=== PATIENT | female | born 1955 | race Caucasian/White ===

== ENCOUNTER 2018-08-28 07:00 | Day surgery (SDC) | payer OTHER ==
[~2018-08-28] VITALS: Ht 167.6 cm; Wt 55.5 kg
[~2018-08-28 07:00] MED LIST: SODIUM CHLORIDE 0.9% 1,000 ML IV ONE
[2018-08-28] MEDS ORDERED: BENZOCAINE 20% 50 MCG/SPRAY 57 GM TP ONE (07:01)
[2018-08-28] MEDS ORDERED: ALBUTEROL SULFATE 2.5 MG/0.5 ML NEB SOLUTION NEB ONE (07:01)
[2018-08-28] MEDS ORDERED: LIDOCAINE 4% 50 ML SOLUTION TP ONE (07:01)
[2018-08-28] MEDS ORDERED: LIDOCAINE 2% 30 ML JELLY TP ONE (07:01)
[2018-08-28] MEDS ORDERED: ATOR10TA84 PO (07:40)
[2018-08-28] MEDS ORDERED: VITAD1000 PO (07:40)
[2018-08-28] MEDS ORDERED: NORT10 PO (07:40)
[2018-08-28] MEDS ORDERED: FLUT16H NASAL (07:40)
[2018-08-28] MEDS ORDERED: MONT10TA21 PO (07:40)
[2018-08-28] MEDS ORDERED: BACL10TA PO (07:40)
[2018-08-28] MEDS ORDERED: BUSP5TAB20 PO (07:40)
[2018-08-28] MEDS ORDERED: ACET-2027 PO (07:40)
[2018-08-28] MEDS ORDERED: BUPR450F2 PO (07:40)
[2018-08-28] MEDS ORDERED: FAMO20 PO (07:40)
[2018-08-28] MEDS ORDERED: PERCT10 PO (07:40)
[2018-08-28] MEDS ORDERED: GABA-531 PO (07:40)
[2018-08-28] MEDS ORDERED: COMBISP IH (07:40)
[2018-08-28] MEDS ORDERED: SALMH IH (07:40)
[2018-08-28] MEDS ORDERED: TIOT185 IH (07:40)
[2018-08-28] MEDS ORDERED: MIDAZOLAM HCL 2 MG/2 ML VIAL ONE (07:54)
[2018-08-28] MEDS ORDERED: FentaNYL CITRATE-PF 100 MCG/2 ML VIAL ONE (07:55)
[2018-08-28] MEDS ORDERED: MethylPREDNISolone SOD SUCC 125 MG/2 ML VIAL IVP ONE (09:45)
[2018-08-28] MEDS ORDERED: OXYGEN THERAPY IH SCH (20:00)
== END 2018-08-28 10:55 | disposition home or self-care (01) ==
LOC: SURGERY 07:00
PROVIDERS: ATTEND Internal Medicine Critical Care Medicine
DX: J38.4 Edema of larynx (principal); B37.0 Candidal stomatitis; Z98.890 Other specified postprocedural states; Z88.1 Allergy status to other antibiotic agents; F17.210 Nicotine dependence, cigarettes, uncomplicated; E80.0 Hereditary erythropoietic porphyria; M19.90 Unspecified osteoarthritis, unspecified site
CPT/HCPCS: 31623; 31624; 71045; 87015; 87070; 87077; 87101; 87186; 87205; 87206; 87220; 88108; 88312; J2250; J2930; J3010; J7030

== ENCOUNTER 2020-06-30 05:57 | Day surgery (SDC) | payer MEDICARE, OTHER ==
[~2020-06-30] VITALS: Ht 162.6 cm; Wt 65.5 kg
[~2020-06-30 05:57] MED LIST changes: +ACET-3385 PO; +ALEN70TA65 PO; +ATOR10TA84 PO; +BACL10TA PO; +BUPR-93 PO; +BUSP10TA23 PO; +CALC-1038 PO; +CHOL500013 PO; +CLOP75TA60 PO; +FAMO20 PO; +FERR-82 PO; +GABA-1181 PO; +METO25 PO; +MONT-35 PO; +NALO25TA4 PO; +NORT10 PO; +OXYC-618 PO; -SODIUM CHLORIDE 0.9% 1,000 ML IV ONE; +SPIR25 PO; +TRAM50TA4 PO
[2020-06-30] MEDS ORDERED: SODIUM CHLORIDE 0.9% 1,000 ML IV ONE (06:00)
[2020-06-30] MEDS ORDERED: SODIUM CHLORIDE 0.9% 1,000 ML ONE (06:38)
[2020-06-30 07:05] LABS: COVID AG,FIA SOURCE NASOPHARYNGEAL
[2020-06-30] MEDS ORDERED: FentaNYL CITRATE PF 100 MCG/2 ML VIAL ONE (08:00)
[2020-06-30] MEDS ORDERED: MIDAZOLAM HCL 2 MG/2 ML VIAL ONE (08:00)
[2020-06-30] MEDS ORDERED: MethylPREDNISolone SOD SUCC 125 MG/2 ML VIAL IVP ONE (09:00)
[2020-06-30] MEDS ORDERED: MethylPREDNISolone SOD SUCC 125 MG/2 ML VIAL ONE (09:08)
[2020-06-30] MEDS ORDERED: OXYGEN THERAPY IH SCH (20:00)
== END 2020-06-30 10:40 | disposition home or self-care (01) ==
LOC: SURGERY 05:57
PROVIDERS: ATTEND Internal Medicine Critical Care Medicine
DX: J38.4 Edema of larynx (principal); B37.0 Candidal stomatitis; Z95.0 Presence of cardiac pacemaker; Z88.1 Allergy status to other antibiotic agents; Z95.5 Presence of coronary angioplasty implant and graft; Z98.890 Other specified postprocedural states; J43.9 Emphysema, unspecified; Z79.899 Other long term (current) drug therapy
CPT/HCPCS: 31623; 31624; 71045; 87015; 87070; 87077; 87101; 87186; 87205; 87206; 87220; 87426; 88108; 88184; 88185; 88312; 93005; C9803; J2250; J2930; J3010; J7030